=== PATIENT | female | born 1940 | race Caucasian/White ===

== ENCOUNTER → 2016-04-20 | Outpatient (CLI) | payer MEDICARE, OTHER ==
[~2016-04-20] MED LIST: AC325T PO; ALBU8.5H2 IH; ASPI-586 PO; ASPI-894 PO; CEFD300C PO; GFN600TCR PO; IPRA3AMP11 INH; LISI1TAB6 PO; METO25TA60 PO; MOME13HF IH; WRF5T PO
[2016-04-20 14:36] LABS: BILIRUBIN,URINE Negative (Negative); CLARITY,URINE Cloudy; COLOR,URINE Yellow; GLUCOSE, URINE (UA) Negative (Negative); LEUKOCYTE ESTERASE ,URINE 2+ (Negative); PH,URINE 5.5 (5.0 - 8.0); UROBILINOGEN,URINE 0.2 mg/dL (0.2-1.0)
[2016-04-20 14:37] LABS: URINE CENTRIFUGED VOLUME 12 mL
== END ==
LOC: LAB 10:38 → EDSTATUS 10:41 → LAB 14:24
PROVIDERS: ATTEND Family Medicine
DX: R30.0 Dysuria (principal); R82.99 Other abnormal findings in urine
CPT/HCPCS: 81003; 81015; 87077; 87088; 87186

== ENCOUNTER → 2016-06-11 | Outpatient (CLI) | payer MEDICARE, OTHER | LOC: RAD 08:07 | PROVIDERS: ATTEND Internal Medicine Hematology & Oncology | DX: Z78.0 Asymptomatic menopausal state (principal) | CPT/HCPCS: 77080 ==

== ENCOUNTER → 2016-06-28 | Outpatient (CLI) | payer MEDICARE, OTHER | LOC: RAD 11:46 | PROVIDERS: ATTEND Physician Assistant Surgical | DX: R05 Cough (principal); R09.02 Hypoxemia | CPT/HCPCS: 71020 ==

== ENCOUNTER → 2016-06-28 | Outpatient (REF) | payer MEDICARE, OTHER ==
[2016-06-28 11:54] LABS: BASOPHILS % (AUTO) 1 % (0-2); EOSINOPHILS # (AUTO) 0.1 10^3uL; EOSINOPHILS % (AUTO) 1 % (0-4); LYMPHOCYTES # (AUTO) 1.1 X10^3; MEAN CORPUSCULAR HEMOGLOBIN 29.6 PG (26.0-34.0); MEAN CORPUSCULAR HGB CONC 34.1 g/dL (31.0-37.0); MEAN CORPUSCULAR VOLUME 87 FL (80-100); MEAN PLATELET VOLUME 9.5 FL (6.0-9.5); MONOCYTES # (AUTO) 0.7 X10^3; MONOCYTES % (AUTO) 8 % (3-11); NEUTROPHILS # (AUTO) 6.8 X10^3; NEUTROPHILS % (AUTO) 77 % (51-67); PLATELET COUNT 248 10^3uL (150-450); WHITE BLOOD COUNT 8.83 10^3uL (4.0-11.0)
== END ==
LOC: LAB 11:35
PROVIDERS: ATTEND Physician Assistant Surgical
DX: R05 Cough (principal)
CPT/HCPCS: 85025

== ENCOUNTER → 2016-07-16 | Outpatient (REF) | payer MEDICARE, OTHER ==
[2016-07-16 12:12] LABS: ALBUMIN 3.6 g/dL (3.4-5.0); ANION GAP 12.3 MEQ/L (3-15); CALCULATED IONIZED CALCIUM 3.9 mg/dL (3.8-4.6); TOTAL PROTEIN 6.6 g/dL (6.4-8.5)
== END ==
LOC: LAB 11:50
PROVIDERS: ATTEND Physician Assistant Surgical
DX: R60.9 Edema, unspecified (principal)
CPT/HCPCS: 80053

== ENCOUNTER → 2016-07-23 | Outpatient (CLI) | payer MEDICARE, OTHER ==
[2016-07-23 11:03] LABS: BASOPHILS % (AUTO) 1 % (0-2); EOSINOPHILS # (AUTO) 0.2 10^3uL; EOSINOPHILS % (AUTO) 5 % (0-4); LYMPHOCYTES # (AUTO) 1.4 X10^3; MEAN CORPUSCULAR HEMOGLOBIN 28.8 PG (26.0-34.0); MEAN CORPUSCULAR HGB CONC 32.9 g/dL (31.0-37.0); MEAN CORPUSCULAR VOLUME 88 FL (80-100); MEAN PLATELET VOLUME 9.5 FL (6.0-9.5); MONOCYTES # (AUTO) 0.4 X10^3; MONOCYTES % (AUTO) 8 % (3-11); NEUTROPHILS # (AUTO) 2.6 X10^3; NEUTROPHILS % (AUTO) 56 % (51-67); PLATELET COUNT 243 10^3uL (150-450); WHITE BLOOD COUNT 4.69 10^3uL (4.0-11.0)
[2016-07-23 11:16] LABS: ALBUMIN 3.7 g/dL (3.4-5.0); ANION GAP 12.3 MEQ/L (3-15); CALCULATED IONIZED CALCIUM 4.1 mg/dL (3.8-4.6); TOTAL PROTEIN 6.9 g/dL (6.4-8.5)
== END ==
LOC: LAB 10:09
PROVIDERS: ATTEND Family Medicine
DX: I10 Essential (primary) hypertension (principal); I48.0 Paroxysmal atrial fibrillation; J98.4 Other disorders of lung; C50.412 Malignant neoplasm of upper-outer quadrant of left female breast; J16.8 Pneumonia due to other specified infectious organisms
CPT/HCPCS: 36415; 80053; 80061; 84443; 85025